=== PATIENT | female | born 1960 | race Caucasian/White ===

== ENCOUNTER 2024-09-26 10:45 | Emergency (ER) | payer MEDICARE, OTHER, SELFPAY ==
[2024-09-26 10:53] VITALS: BP 134/72; PULSE 92; RESP 18; TEMP 36.4; O2SAT 98
--- NOTE | 2024-09-26 11:14 | ED_ITS ---
HPI - URI/Sore Throat General Chief Complaint: Upper Respiratory Infection Stated Complaint: Throat Time Seen by Provider: 09/26/24 11:02 Source: patient and RN notes reviewed Mode of arrival: ambulatory Limitations: no limitations History of Present Illness HPI Narrative: Patient presents today with a 2 day history of sore throat, headache, postnasal drip, slight cough due to drainage. Denies congestion, rhinorrhea, fever, shortness of breath. Negative home COVID test yesterday. Currently rates her pain 06/15 and has not tried any [id number] treatment prior to arrival. Related Data Home Medications Medication Instructions Recorded Confirmed amlodipine 5 mg tablet 5 mg PO DAILY 09/26/24 09/26/24 empagliflozin 25 mg tablet 25 mg PO DAILY 09/26/24 09/26/24 (Jardiance) hydrochlorothiazide 12.5 mg capsule 12.5 mg PO DAILY 09/26/24 09/26/24 levothyroxine 88 mcg tablet 88 mcg PO DAILY 09/26/24 09/26/24 lisinopril 40 mg tablet 40 mg PO DAILY 09/26/24 09/26/24 metformin 500 mg tablet,extended 500 mg PO BID 09/26/24 09/26/24 release 24 hr sitagliptin phosphate 100 mg 100 mg PO DAILY 09/26/24 09/26/24 tablet (Januvia) Allergies Allergy/AdvReac Type Severity Reaction Status Date / Time No Known Allergies Allergy Verified 09/26/24 11:04 Review of Systems Review of Systems: CONSTITUTIONAL: Denies body aches, fever, chills, or sweats. EYES: Denies visual changes, redness, or discharge. ENT: Denies rhinorrhea, congestion,or otalgia.+ sore throat, postnasal drip CARDIOVASCULAR: Denies chest pain, palpitations, or edema. RESPIRATORY: Denies dyspnea.+ mild cough GASTROINTESTINAL: Denies abdominal pain, nausea, vomiting, or diarrhea. GENITOURINARY: Denies dysuria or hematuria. SKIN: Denies rash, itching, or wounds. MUSCULOSKELETAL: Denies back pain, joint pain, or myalgia. NEUROLOGIC: Denies numbness, tingling, or weakness.+ headache PSYCH: Denies depression or anxiety. [facility] Past Medical History Medical History (Updated 09/26/24 @ 11:21 by Babs Onofre, [employer], [place]) Diabetes Surgical History Surgical History (Updated 09/26/24 @ 11:17 by Babs Onofre, [facility], ) H/O partial thyroidectomy H/O splenectomy H/O: hysterectomy History of appendectomy History of cholecystectomy Hx of tonsillectomy Comments At time of signature, I have reviewed and agree with nursing past medical, surgical, social and family history unless otherwise noted. Please see nursing chart for further information. There is no relevant family history pertinent to the presenting complaint Exam Narrative: GENERAL: Mildly ill-appearing, well-nourished, and in no acute distress. HEAD: Normocephalic, atraumatic. EYES: EOMI. No redness or drainage. Conjunctivae normal. ENT: Mucous membranes pink and moist. Nares clear. No rhinorrhea. TMs normal bilaterally. Throat normal. Uvula midline. NECK: Normal AROM. Supple. No lymphadenopathy. CHEST: No respiratory distress. Clear to auscultation. HEART: Regular rate and rhythm. No murmur appreciated. EXTREMITIES: Normal range of motion. No edema. SKIN: Warm, dry, no rash. Capillary refill normal. Normal skin turgor. NEURO: No focal deficits. Alert and oriented x3. Gait steady. PSYCH: Normal affect. No signs of depression or anxiety. Course Course Level of Care: Express Care Visit Vital Signs Vital signs: Vital Signs Temperature 97.5 F L 09/26/24 10:53 Pulse Rate 92 09/26/24 10:53 Respiratory Rate 18 09/26/24 10:53 Blood Pressure 134/72 09/26/24 10:53 Pulse Oximetry 98 09/26/24 10:53 Temperature 97.5 F L 09/26/24 10:53 Pulse Rate 92 09/26/24 10:53 Respiratory Rate 18 09/26/24 10:53 Blood Pressure 134/72 09/26/24 10:53 Pulse Oximetry 98 09/26/24 10:53 Reviewed MDM - URI/Sore Throat MDM Narrative Medical decision making narrative: Rapid strep negative. Culture pending. Symptoms likely viral in etiology. Discussed [id number] medication use and duration of illness. No prescription medications indicated at this time. Anticipatory guidance given. Differential Diagnosis Differential diagnosis: Likely upper respiratory infection, viral infection, pharyngitis and other (Strep throat) Lab Data Attestation: I reviewed the patient's lab results. Lab results narrative: Rapid strep negative Critical Care Time Critical Care Time Critical Care Time: No Discharge Plan Discharge Clinical Impression: Upper respiratory infection Qualifiers: URI type: unspecified URI Qualified Code(s): J06.9 - Acute upper respiratory infection, unspecified Patient Disposition: Home, Self-Care Condition: Stable Instructions: Upper Respiratory Infection (DC) Additional Instructions: Your rapid strep swab was negative today at [facility]. You will be notified in a few days if the culture comes back positive for strep, and appropriate antibiotics will be called in for you at that time. Your symptoms are likely due to a viral illness, which is not treated with antibiotics. Viral symptoms can be present for up to 7-10 days. Take Tylenol or ibuprofen for fever or pain. Consider an antihistamine for your postnasal drip such as Zyrtec, Claritin, or Sabrina. Rest and stay hydrated. Follow up with your PCP in 7 days if symptoms are not improving. Go to the ER immediately if you have any difficulty breathing or swallowing. Your blood pressure was elevated above 120/80 today at Urgent Care. This puts you above the threshold for follow up. Please schedule a followup visit with your personal physician as soon as possible, for further evaluation and treatment. Even blood pressure exceeding 120/80 may indicate pre-hypertension. Prescriptions: No Action metformin 500 mg tablet extended release 24 hr 500 mg PO BID levothyroxine 88 mcg tablet 88 mcg PO DAILY Januvia 100 mg tablet 100 mg PO DAILY amlodipine 5 mg tablet 5 mg PO DAILY hydrochlorothiazide 12.5 mg capsule 12.5 mg PO DAILY lisinopril 40 mg tablet 40 mg PO DAILY Jardiance 25 mg tablet 25 mg PO DAILY Follow-up/Referrals: Nicole,Balwinder Castellano MD [Primary Care Provider] - Time of Disposition: 11:21
[2024-09-26 11:16] LABS: EDSTREPNEGPOS1 Negative (Negative)
== END 2024-09-26 11:22 | disposition home or self-care (01) ==
PROVIDERS: Emergency Provider Nurse Practitioner; PCP Internal Medicine
DX: J06.9 Acute upper respiratory infection, unspecified (principal); E11.9 Type 2 diabetes mellitus without complications; Z79.899 Other long term (current) drug therapy; Z79.84 Long term (current) use of oral hypoglycemic drugs
CPT/HCPCS: 87081; 87880; 99203; G0463